=== PATIENT | female | born 1980 | race Two or more races ===

== ENCOUNTER 2021-12-21 09:52 | Emergency (ER) | payer OTHER, SELFPAY ==
[2021-12-21 09:58] VITALS: BP 93/49; PULSE 73; RESP 18; TEMP 36.8; O2SAT 99
--- NOTE | 2021-12-21 12:07 | ED_ITS ---
HPI - Animal Bite General Chief Complaint: Animal Bite Stated Complaint: rt leg insect bite Time Seen by Provider: 12/21/21 11:24 Source: patient Mode of arrival: ambulatory History of Present Illness HPI narrative: 41-year-old female with no significant past medical history presenting to the ED complaining painful insect bite to right thigh since yesterday while gardening. Patient uncertain what she was bitten by. Reports increasing pain/swelling and redness. Denies injury to other area, fever, chills Onset (ago): day(s) Related Data Previous Rx's Medication Instructions Recorded cephalexin 500 mg capsule 500 mg PO QID 7 days #28 caps 12/21/21 doxycycline hyclate 100 mg tablet 100 mg PO BID 10 days #20 tabs 12/21/21 Allergies Allergy/AdvReac Type Severity Reaction Status Date / Time No Known Allergies Allergy Verified 12/21/21 11:43 Review of Systems Review of Systems: Constitutional: No Fever, No Chills ENT/Mouth: No Ear Pain, No Nasal Congestion, No sore throat, No Rhinorrhea, No Swallowing Difficulty Cardiovascular: No Chest Pain, No SOB Respiratory: No Cough, No Wheezing Gastrointestinal: No Nausea, No Vomiting, No Diarrhea, No Constipation, No Abdominal pain Genitourinary: No Dysuria, No Urinary Frequency, No Hematuria, No Flank Pain Musculoskeletal: No joint pain, No Myalgias, No Joint Swelling Skin: + Skin Lesions, No rash Neuro: No Weakness, No Numbness, No Paresthesias Yes all other systems are reviewed and are negative Constitutional: Constitutional: Reports as per [facility] Past Medical History Attestation statement: The following information was validated with the patient. Social History Social History Advance Directives: No Advance Directives Information Provided: Yes Physical Exam ED Vital Signs: Vital Signs - 24 hr 12/21/21 09:58 Temperature 98.3 F Pulse Rate 73 Respiratory Rate 18 Blood Pressure 93/49 L Pulse Oximetry 99 Oxygen Delivery Method Room Air BMI result Body Mass Index 0.0 Const General: cooperative, healthy appearing, no acute distress, alert and awake Orientation/consciousness: patient oriented x3 Limitations: no limitations HENMT Head: Yes normal to inspection and Yes atraumatic Ears: hearing grossly normal bilaterally General nose exam: Normal external nose present Face and sinus: Yes normal facial exam Eyes General: appearance normal, both eyes and all related structures EOM: EOMs intact bilaterally Neck Neck: Yes normal visual inspection and Yes no meningeal signs Resp Effort & Inspection: normal respiratory effort and no respiratory distress Cardio Rate: regular rate Heart sounds: S1 normal heart sound present and S2 normal heart sound present Skin Other: Please refer to imaged above of right thigh. Noted bite susie with surrounding erythema in circular pattern. No central clearing. + indurated, no fluctuance. Not circumferential Neuro General: patient oriented x3, tone normal and no meningeal signs Gait exam (Neuro): Normal gait present Extrem General: Yes normal to inspection MDM - Animal Bite MDM Narrative Medical decision making narrative: 41-year-old female with no significant past medical history presenting to the ED complaining painful insect bite to right thigh since yesterday while gardening. On exam mildly hypotensive, NAD/nontoxic-appearing, please refer to imaging above/physical exam. Concern for tick/insect or spider bite with overlying cellulitis. No appreciable drainable abscess at this time. Low concern for septic joint/arthritis Plan: Lyme titer, p.o. doxycycline/Keflex Medical Records Attestation: I reviewed the patient's medical records. Lab Data Attestation: I reviewed the patient's lab results. Discharge Plan Discharge Clinical Impression: Insect bite, Cellulitis, leg Patient Disposition: Home, Self-Care Instructions: Cellulitis (ED), Insect Bite or Sting (ED) Additional Instructions: You have an infected bite wound to your right leg. Doxycycline is antibiotic please take as prescribed. We sent off Lyme screening, we will call you with positive results only 48-72 hours. If area becomes larger, increasingly painful, you fevers, red streaking up her leg return to the emergency department. Follow up with her doctor Prescriptions: New doxycycline hyclate 100 mg tablet 100 mg PO BID 10 Days Qty: 20 0RF cephalexin 500 mg capsule 500 mg PO QID 7 Days Qty: 28 0RF
[2021-12-21 12:20] VITALS: BP 95/57; PULSE 62; RESP 16; O2SAT 100
[2021-12-23 12:56] LABS: Lyme Abs Screen <0.90 index
== END 2021-12-21 12:34 | disposition home or self-care (01) ==
PROVIDERS: Physician Assistant; Emergency Provider Emergency Medicine Emergency Medical Services
DX: S70.361A Insect bite (nonvenomous), right thigh, initial encounter (principal); W57.XXXA Bitten or stung by nonvenomous insect and other nonvenomous arthropods, initial encounter; L03.115 Cellulitis of right lower limb; Y93.H2 Activity, gardening and landscaping; Y92.017 Garden or yard in single-family (private) house as the place of occurrence of the external cause; Y99.9 Unspecified external cause status
CPT/HCPCS: 36415; 86617; 86618; 99283